=== PATIENT | male | born 1965 | race American Indian/Alaskan Native ===

== ENCOUNTER 2018-09-09 16:29 | Inpatient (IN) | payer OTHER ==
--- NOTE | 2018-09-09 16:44 | Emergency Department Report ---
Blank Doc - Documentation Documentation: has increasing SOB that began two days ago difficulty lying flat states that his PCP took him off of lasix a year ago, was previously on it for two years but not sure what he was on it for PCP: amadeo haro has not seen a custodial officer in a couple years no CP PMHx DM, gout, HLD, HTN no allergies to meds social cigar occ drinker no drug use
[2018-09-09 17:03] LABS: Basophils % (Auto) 0.4 % (0.0-1.8); Eosinophils # (Auto) 0.1 K/mm3 (0.0-0.4); Eosinophils % (Auto) 0.8 % (0.0-4.3); Hemoglobin 12.8 gm/dl (11.8-15.2); Lymphocytes # (Auto) 1.9 K/mm3 (1.2-5.4); Lymphocytes % (Auto) 21.6 % (13.4-35.0); Mean Corpuscular HGB Conc 34 % (32-34); Mean Corpuscular Volume 87 fl (84-94); Monocytes # (Auto) 0.5 K/mm3 (0.0-0.8); Monocytes % (Auto) 5.8 % (0.0-7.3); Platelet Count 242 K/mm3 (140-440); Red Blood Count 4.36 M/mm3 (3.65-5.03); Red Cell Distribution Width 15.8 % (13.2-15.2)
--- NOTE | 2018-09-09 17:08 | XRay Report ---
PROCEDURE: XR CHEST ROUTINE 2V TECHNIQUE: PA and lateral chest radiographs were obtained. HISTORY: SOB COMPARISONS: None. FINDINGS: Heart: Mild cardiomegaly. Mediastinum/Vessels: Trachea midline.. Lungs/Pleural space: [id number] right effusion. Small left effusion. Bibasilar airspace disea se. Bony thorax: No acute osseous abnormality. IMPRESSION: Cardiomegaly. Bilateral effusions airspace disease right greater than left. Findings com patible with congestive heart failure.. This document is electronically signed by Praneeth Neal MD., Sep 09 2018 05:05:55 PM ET
[2018-09-09 17:20] LABS: BUN/Creatinine Ratio 11; Blood Urea Nitrogen 13 mg/dL (9-20); Calcium 9.8 mg/dL (8.4-10.2); Hemolysis Index 4
--- NOTE | 2018-09-09 17:34 | Emergency Department Report ---
ED Shortness of Breath HPI - General Chief Complaint: Dyspnea/Respdistress Stated Complaint: CHEST DISCOMFORT Time Seen by Provider: 09/09/18 16:41 Source: patient, RN notes reviewed, old records reviewed Mode of arrival: Ambulatory Limitations: No Limitations - History of Present Illness Initial Comments: This is a 53-year-old gentleman. The patient is not known to this provider previously. His primary care doctor is Dr. Calles. His past medical history includes hypertension, gout, diabetes. The patient presents to the emergency room today with a complaint of painless shortness of breath. He reports new onset 3 pillow orthopnea, over the past 2-3 days. There is an unintentional 10 pound weight gain, and lower extremity swelling. He denies physical pain at this time. Shortness of breath worsens with laying flat, physical exertion, decreases with rest, and sitting up. Does not have a formal diagnosis of congestive heart failure that he is aware of. MD Complaint: shortness of breath, cough -: Gradual, days(s) Consistency: intermittent Improves With: rest Worsens With: lying flat, exertion Known History Of: other - Related Data Home Oxygen Therapy: No Home Medications Medication Instructions Recorded Confirmed Last Taken Carvedilol [Coreg] 12.5 mg PO BID 06/08/17 06/08/17 06/03/17 Fenofibrate 160 mg PO DAILY 06/08/17 06/08/17 06/03/17 Furosemide [Lasix] 20 mg PO DAILY 06/08/17 06/08/17 06/03/17 Metformin HCl [Glucophage] 1,000 mg PO BID 06/08/17 06/08/17 06/03/17 Potassium Chloride [Klor-Con M20] 20 meq PO DAILY 06/08/17 06/08/17 06/03/17 glipiZIDE [Glipizide] 10 mg PO DAILY 06/08/17 06/08/17 06/03/17 Previous Rx's Medication Instructions Recorded Last Taken Type Amoxicillin/K Clav Tab [Augmentin 1 tab PO Q12HR #14 tab 06/10/17 Unknown Rx 875 mg] Insulin Glargine,Hum.rec.anlog 10 units SQ QHS #5 pen 06/10/17 Unknown Rx [Lantus Solostar] Insulin Glargine,Hum.rec.anlog 10 unit SQ QHS #1 vial 06/10/17 Unknown Rx [Lantus] Lisinopril [Zestril TAB] 40 mg PO QDAY #30 tablet 06/10/17 Unknown Rx amLODIPine [Norvasc] 10 mg PO QDAY #30 tablet 06/10/17 Unknown Rx DOXYCYCLINE Hyclate [Vibramycin 100 mg PO Q12HR #14 capsule 06/11/17 Unknown Rx CAP] Allergies Allergy/AdvReac Type Severity Reaction Status Date / Time No Known Allergies Allergy Unverified 06/08/17 06:55 ED Review of Systems ROS: Stated complaint: CHEST DISCOMFORT Other details as noted in HPI Constitutional: malaise. denies: fever Eyes: denies: vision change ENT: denies: epistaxis Respiratory: cough, shortness of breath Cardiovascular: dyspnea on exertion, orthopnea, edema. denies: chest pain Gastrointestinal: denies: abdominal pain, nausea, vomiting Genitourinary: denies: dysuria Musculoskeletal: denies: arthralgia Skin: denies: lesions Neurological: weakness Psychiatric: denies: anxiety ED Past Medical Hx - Past Medical History Previous Medical History?: Yes Hx Hypertension: Yes Hx Congestive Heart Failure: No Hx Diabetes: Yes Hx Asthma: No Hx COPD: No Additional medical history: Gout, hyperlipidemia - Surgical History Past Surgical History?: Yes Additional Surgical History: Esophageal surgery as a young age, cyst removed fr om back - Social History Smoking Status: Current Some Day Smoker Substance Use Type: Alcohol, Prescribed - Medications Home Medications: Home Medications Medication Instructions Recorded Confirmed Last Taken Type Carvedilol [Coreg] 12.5 mg PO BID 06/08/17 06/08/17 06/03/17 History Fenofibrate 160 mg PO DAILY 06/08/17 06/08/17 06/03/17 History Furosemide [Lasix] 20 mg PO DAILY 06/08/17 06/08/17 06/03/17 History Metformin HCl [Glucophage] 1,000 mg PO BID 06/08/17 06/08/17 06/03/17 History Potassium Chloride [Klor-Con M20] 20 meq PO DAILY 06/08/17 06/08/17 06/03/17 History glipiZIDE [Glipizide] 10 mg PO DAILY 06/08/17 06/08/17 06/03/17 History Amoxicillin/K Clav Tab [Augmentin 1 tab PO Q12HR #14 tab 06/10/17 Unknown Rx 875 mg] Insulin Glargine,Hum.rec.anlog 10 units SQ QHS #5 pen 06/10/17 Unknown Rx [Lantus Solostar] Insulin Glargine,Hum.rec.anlog 10 unit SQ QHS #1 vial 06/10/17 Unknown Rx [Lantus] Lisinopril [Zestril TAB] 40 mg PO QDAY #30 tablet 06/10/17 Unknown Rx amLODIPine [Norvasc] 10 mg PO QDAY #30 tablet 06/10/17 Unknown Rx DOXYCYCLINE Hyclate [Vibramycin 100 mg PO Q12HR #14 capsule 06/11/17 Unknown Rx CAP] ED Physical Exam - General Limitations: No Limitations General appearance: alert, in no apparent distress, obese - Head Head exam: Present: atraumatic, normocephalic - Eye Eye exam: Present: normal appearance, EOMI - ENT ENT exam: Present: normal exam, normal orophraynx, mucous membranes moist, normal external ear exam - Neck Neck exam: Present: normal inspection, full ROM, other (5 cm of jugular venous distention noted bilaterally.). Absent: tenderness, meningismus - Respiratory Respiratory exam: Present: rales. Absent: wheezes, chest wall tenderness, accessory muscle use, decreased breath sounds - Cardiovascular Cardiovascular Exam: Present: regular rate, normal rhythm, normal heart sounds. Absent: bradycardia, tachycardia, irregular rhythm, systolic murmur, diastolic murmur, rubs, gallop - GI/Abdominal GI/Abdominal exam: Present: soft. Absent: distended, tenderness, guarding, rebound, rigid, pulsatile mass - Rectal Rectal exam: Present: deferred - Extremities Exam Extremities exam: Present: normal inspection, full ROM, pedal edema, other (2+ pulses noted in the bilateral upper, lower extremities. Compartments soft. No long bony tenderness. The pelvis is stable.). Absent: calf tenderness - Back Exam Back exam: Present: normal inspection, full ROM. Absent: tenderness, CVA tenderness (R), CVA tenderness (L), muscle spasm, paraspinal tenderness, vertebral tenderness - Neurological Exam Neurological exam: Present: alert, oriented X3, other (Extraocular movements intact. Tongue midline. No facial droop. Facial sensation intact to light touch in the V1, V2, V3 distribution bilaterally. 5 and 5 strength in 4 extremities.. Sensation is intact to light touch in 4 extremities.). Absent: motor sensory deficit - Psychiatric Psychiatric exam: Present: normal affect, normal mood - Skin Skin exam: Present: warm, dry, intact, normal color. Absent: rash ED Course Vital Signs 09/09/18 09/09/18 09/09/18 16:37 17:21 17:32 Temperature 97.6 F Pulse Rate 96 H 95 H Respiratory 18 26 H Rate Blood Pressure 111/78 123/85 O2 Sat by Pulse 99 95 100 Oximetry 09/09/18 09/09/18 09/09/18 17:46 18:00 18:16 Temperature Pulse Rate 96 H 96 H 98 H Respiratory 20 22 17 Rate Blood Pressure 128/89 127/93 127/93 O2 Sat by Pulse 98 100 100 Oximetry 09/09/18 09/09/18 18:30 18:46 Temperature Pulse Rate 97 H 99 H Respiratory 29 H 28 H Rate Blood Pressure 127/93 127/93 O2 Sat by Pulse 100 100 Oximetry ED Medical Decision Making - Lab Data Result diagrams: 09/09/18 16:49 09/09/18 16:49 Vital Signs 09/09/18 16:37 Temperature 97.6 F Pulse Rate 96 H Respiratory 18 Rate Blood Pressure 111/78 O2 Sat by Pulse 99 Oximetry Lab Results 09/09/18 09/09/18 Range/Units 16:49 16:49 WBC 8.8 (4.5-11.0) K/mm3 RBC 4.36 (3.65-5.03) M/mm3 Hgb 12.8 (11.8-15.2) gm/dl Hct 38.0 (35.5-45.6) % MCV 87 (84-94) fl MCH 29 (28-32) pg MCHC 34 (32-34) % RDW 15.8 H (13.2-15.2) % Plt Count 242 (140-440) K/mm3 Lymph % (Auto) 21.6 (13.4-35.0) % [place] % (Auto) 5.8 (0.0-7.3) % Eos % (Auto) 0.8 (0.0-4.3) % Baso % (Auto) 0.4 (0.0-1.8) % Lymph # 1.9 (1.2-5.4) K/mm3 [place] # 0.5 (0.0-0.8) K/mm3 Eos # 0.1 (0.0-0.4) K/mm3 Baso # 0.0 (0.0-0.1) K/mm3 Seg Neutrophils % 71.4 H (40.0-70.0) % Seg Neutrophils # 6.3 (1.8-7.7) K/mm3 Sodium 138 (137-145) mmol/L Potassium 4.6 (3.6-5.0) mmol/L Chloride 102.1 (98-107) mmol/L Carbon Dioxide 23 (22-30) mmol/L Anion Gap 18 mmol/L BUN 13 (9-20) mg/dL Creatinine 1.2 (0.8-1.5) mg/dL Estimated GFR > 60 ml/min BUN/Creatinine Ratio 11 % Glucose 231 H (75-100) mg/dL Calcium 9.8 (8.4-10.2) mg/dL Troponin T < 0.010 (0.00-0.029) ng/mL NT-Pro-B Natriuret Pep 1093 H (0-900) pg/mL - EKG Data -: EKG Interpreted by Ut EKG shows normal: sinus rhythm Rate: normal - EKG Data When compared to previous EKG there are: previous EKG unavailable 09/09/18 17:34 This is a normal sinus rhythm, 94 bpm, normal axis, QTC prolonged, atrial enlargement, poor R wave progression, abnormal EKG, no complaint of chest pain, not consistent with ST elevation myocardial infarction. - Radiology Data Radiology results: report reviewed, image reviewed Print Report Referring Physician: ASAEL BURGOS Patient Name: STEVEN VALDEZ Date of : 1965 Sex: Male Report Date: 2018-09-09 Report Status: Finalized Findings [facility] [address] [place] [address] XR ay Report Signed Patient: STEVEN VALDEZ MR#: [id number] : 1965 Acct:[id number] Age/Sex: 53 / M ADM Date: 09/09/18 Loc: ED Attending Dr: Ordering Physician: JUAN RAMON RIOS Date of Service: 09/09/18 Procedure(s): XR chest routine 2V Accession Number(s): [id number] cc: JUAN RAMON RIOS Fluoro Time In Minutes: PROCEDURE: XR CHEST ROUTINE 2V TECHNIQUE: PA and lateral chest radiographs were obtained. HISTORY: SOB COMPARISONS: None. FINDINGS: Heart: Mild cardiomegaly. Mediastinum/Vessels: Trachea midline.. Lungs/Pleural space: [id number] right effusion. Small left effusion. Bibasilar airspace disease. Bony thorax: No acute osseous abnormality. IMPRESSION: Cardiomegaly. B ilateral effusions airspace disease right greater than left. Findings compatible with congestive heart failure.. This document is electronically signed by Praneeth Apodaca MD., Sep 09 2018 05:05:55 PM ET Transcribed By: MAGDA Dictated By: PRANEETH APODACA MD Electronically Authenticated By: PRANEETH APODACA MD Signed Date/Time: 09/09/18 2168 - Medical Decision Making Differential diagnosis, including but not limited to: Congestive heart failure, orthopnea, fluid overload Assessment and plan: 53-year-old gentleman, not tachycardic, not hypoxic, reports no DVT or pulmonary embolus risk factors, with evidence of acute congestive heart failure, manifest by orthopnea, jugular venous distention, crackles, chest x-ray findings, and history. Recommended admission for diuresis. Patient and family are amenable to this plan of care. Discussed diet and life style modifications for future reference with patient and family, who verbalized understanding. Hospital physician, Dr. Roshni Rosario to admit Critical care attestation.: If time is entered above; I have spent that time in minutes in the direct care of this critically ill patient, excluding procedure time. ED Disposition Clinical Impression: Acute CHF Qualifiers: Heart failure type: unspecified Qualified Code(s): I50.9 - Heart failure, unspecified Disposition: -09 OP ADMIT IP TO THIS HOSP Is pt being admited?: Yes Does the pt Need Aspirin: Yes Condition: Good
[2018-09-09 18:09] LABS: INR 1.02 (0.87-1.13)
[2018-09-09] MEDS ORDERED: LASIX IV ONE (18:10)
[2018-09-09] MEDS ORDERED: BABY ASPIRIN PO ONE (18:10)
[2018-09-09 18:12] LABS: Partial Thromboplastin Time 28.1 Sec. (24.2-36.6)
[2018-09-09] MEDS ORDERED: COLCHICINE PO PRN (21:24)
[2018-09-09] MEDS ORDERED: MORPHINE IV PRN (21:26)
[2018-09-09] MEDS ORDERED: TYLENOL PO PRN (21:26)
[2018-09-09] MEDS ORDERED: SODIUM CHLORIDE FLUSH SYRINGE 10 ML IV PRN (21:26)
[2018-09-09] MEDS ORDERED: NON-FORMULARY (Fenofibrate [Fenofibrate] 160 MG) PO SCH (21:30)
[2018-09-09] MEDS: PEPCID PO SCH (22:19)
[2018-09-09] MEDS: PERCOCET 5/325 PO PRN (22:19)
[2018-09-09] MEDS: LANTUS SUB-Q SCH (22:19)
[2018-09-09] MEDS: COREG PO SCH (22:19)
[2018-09-09] MEDS ORDERED: D50W (25GM) Syringe IV PRN (22:20)
[2018-09-09] MEDS: TRICOR PO SCH (22:20)
[2018-09-09] MEDS: SODIUM CHLORIDE FLUSH SYRINGE 10 ML IV SCH (22:20)
[2018-09-10] MEDS: ZOFRAN IV PRN (05:09)
--- NOTE | 2018-09-10 07:18 | History and Physical Report ---
History of Present Illness Date of examination: 09/09/18 Date of admission: 09/09/18 18:11 Chief complaint: New onset SOB History of present illness: 53-year-old gentleman presents to the emergency room today with a complaint of shortness of breath. He reports new onset 3 pillow orthopnea, over the past 2-3 days. There is an unintentional 10 pound weight gain, and lower extremity swelling. He denies physical pain at this time. Shortness of breath worsens with laying flat, physical exertion, decreases with rest, and sitting up. Does not have a formal diagnosis of congestive heart failure that he is aware of. Has class IV NYHA symptoms Past Medical History Previous Medical History?: Yes Hypertension: Yes Congestive Heart Failure: No Diabetes: Yes Additional medical history: Gout, hyperlipidemia -Surgical History Past Surgical History?: Yes Additional Surgical History: Esophageal surgery as a young age, cyst removed from back Social History Smoking Status: Current Some Day Smoker Substance Use Type: Alcohol, Prescribed Medications Home Medications: Home Medications Medication Instructions Recorded Confirmed Last Taken Type Carvedilol [Coreg] 12.5 mg PO BID 06/08/17 06/08/17 06/03/17 History Fenofibrate 160 mg PO DAILY 06/08/17 06/08/17 06/03/17 History Furosemide [Lasix] 20 mg PO DAILY 06/08/17 06/08/17 06/03/17 History Metformin HCl [Glucophage] 1,000 mg PO BID 06/08/17 06/08/17 06/03/17 History Potassium Chloride [Klor-Con M20] 20 meq PO DAILY 06/08/17 06/08/17 06/03/17 History glipiZIDE [Glipizide] 10 mg PO DAILY 06/08/17 06/08/17 06/03/17 History Amoxicillin/K Clav Tab [Augmentin 1 tab PO Q12HR #14 tab 06/10/17 Unknown Rx 875 mg] Insulin Glargine,Hum.rec.anlog 10 units SQ QHS #5 pen 06/10/17 Unknown Rx [Lantus Solostar] Insulin Glargine,Hum.rec.anlog 10 unit SQ QHS #1 vial 06/10/17 Unknown Rx [Lantus] Lisinopril [Zestril TAB] 40 mg PO QDAY #30 tablet 06/10/17 Unknown Rx amLODIPine [Norvasc] 10 mg PO QDAY #30 tablet 06/10/17 Unknown Rx DOXYCYCLINE Hyclate [Vibramycin 100 mg PO Q12HR #14 capsule 06/11/17 Unknown Rx CAP] Review of Systems ROS: Stated complaint: CHEST DISCOMFORT Other details as noted in HPI Constitutional: malaise. denies: fever Eyes: denies: vision change ENT: denies: epistaxis Respiratory: cough, shortness of breath Cardiovascular: dyspnea on exertion, orthopnea, edema. denies: chest pain Gastrointestinal: denies: abdominal pain, nausea, vomiting Genitourinary: denies: dysuria Musculoskeletal: denies: arthralgia Skin: denies: lesions Neurological: weakness Psychiatric: denies: anxiety Medications and Allergies Allergies Allergy/AdvReac Type Severity Reaction Status Date / Time No Known Allergies Allergy Unverified 06/08/17 06:55 Home Medications Medication Instructions Recorded Confirmed Last Taken Type Carvedilol [Coreg] 12.5 mg PO BID 06/08/17 09/09/18 2 Days Ago History ~09/07/18 Fenofibrate 160 mg PO DAILY 06/08/17 09/09/18 1 Day Ago History ~09/08/18 Insulin Glargine,Hum.rec.anlog 10 unit SQ QHS #1 vial 06/10/17 09/09/18 1 Day Ago Rx [Lantus] ~09/08/18 Colchicine 0.6 mg PO TID PRN 09/09/18 09/09/18 3 Weeks Ago History ~08/19/18 Active Meds: Active Medications Acetaminophen (Tylenol) 650 mg PO Q4H PRN PRN Reason: Pain MILD(1-3)/Fever >100.5/ALANIZ Carvedilol (Coreg) 12.5 mg PO BID [facility] Last Admin: 09/09/18 22:19 Dose: 12.5 mg Documented by: Colchicine (Colchicine) 0.6 mg PO TID PRN PRN Reason: Pain , Severe (7-10) Dextrose (D50w (25gm) Syringe) 50 ml IV PRN PRN PRN Reason: Hypoglycemia Famotidine (Pepcid) 20 mg PO BID [facility] Last Admin: 09/09/18 22:19 Dose: 20 mg Documented by: Fenofibrate (Tricor) 145 mg PO DAILY [facility] Last Admin: 09/09/18 22:20 Dose: 145 mg Documented by: Guaifenesin (Guaifenesin Dm Syrup) 10 ml PO Q4H PRN PRN Reason: Cough Insulin Glargine (Lantus) 10 units SUB-Q QHS [facility] Last Admin: 09/09/18 22:19 Dose: 10 units Documented by: Insulin Human Lispro (Humalog) 0 unit SUB-Q ACHS [facility]; Protocol Morphine Sulfate (Morphine) 2 mg IV Q4H PRN PRN Reason: Pain, Moderate (4-6) Ondansetron HCl (Zofran) 4 mg IV Q8H PRN PRN Reason: Nausea And Vomiting Last Admin: 09/10/18 05:09 Dose: 4 mg Documented by: Oxycodone/Acetaminophen (Percocet 5/325) 1 tab PO Q6H PRN PRN Reason: Pain, Moderate (4-6) Last Admin: 09/09/18 22:19 Dose: 1 tab Documented by: Sodium Chloride (Sodium Chloride Flush Syringe 10 Ml) 10 ml IV BID [facility] Last Admin: 09/09/18 22:20 Dose: 10 ml Documented by: Sodium Chloride (Sodium Chloride Flush Syringe 10 Ml) 10 ml IV PRN PRN PRN Reason: LINE FLUSH Exam - Constitutional Vitals: Temp Pulse Resp BP Pulse Ox 97.4 F L 86 20 115/82 94 09/10/18 05:00 09/10/18 05:00 09/10/18 05:00 09/10/18 05:00 09/10/18 05:00 General appearance: Present: no acute distress, well-nourished - EENT Eyes: Present: PERRL ENT: hearing intact, clear oral mucosa - Neck Neck: Present: supple, normal ROM - Respiratory Respiratory effort: normal Respiratory: bilateral: rales - Cardiovascular Heart rate: 88 Rhythm: regular Heart Sounds: Present: S1 & S2. Absent: rub, click - Extremities Extremities: no ischemia, pulses intact, pulses symmetrical, No edema Extremity abnormal: edema (2 plus) Peripheral Pulses: within normal limits - Abdominal General gastrointestinal: Present: soft, non-tender, non-distended, normal bowel sounds Male genitourinary: Present: normal - Rectal Rectal Exam: deferred - Integumentary Integumentary: Present: clear, warm, dry - Musculoskeletal Musculoskeletal: gait normal, strength equal bilaterally - Psychiatric Psychiatric: appropriate mood/affect, intact judgment & insight - Neurologic Neurologic: CNII-XII intact, moves all extremities - Allied Health Allied health notes reviewed: nursing, case management Results - Labs CBC & Chem 7: 09/09/18 16:49 09/09/18 16:49 Labs: Laboratory Last Values WBC 8.8 K/mm3 (4.5-11.0) 09/09/18 16:49 RBC 4.36 M/mm3 (3.65-5.03) 09/09/18 16:49 Hgb 12.8 gm/dl (11.8-15.2) 09/09/18 16:49 Hct 38.0 % (35.5-45.6) 09/09/18 16:49 MCV 87 fl (84-94) 09/09/18 16:49 MCH 29 pg (28-32) 09/09/18 16:49 MCHC 34 % (32-34) 09/09/18 16:49 RDW 15.8 % (13.2-15.2) H 09/09/18 16:49 Plt Count 242 K/mm3 (140-440) 09/09/18 16:49 Lymph % (Auto) 21.6 % (13.4-35.0) 09/09/18 16:49 [place] % (Auto) 5.8 % (0.0-7.3) 09/09/18 16:49 Eos % (Auto) 0.8 % (0.0-4.3) 09/09/18 16:49 Baso % (Auto) 0.4 % (0.0-1.8) 09/09/18 16:49 Lymph # 1.9 K/mm3 (1.2-5.4) 09/09/18 16:49 [place] # 0.5 K/mm3 (0.0-0.8) 09/09/18 16:49 Eos # 0.1 K/mm3 (0.0-0.4) 09/09/18 16:49 Baso # 0.0 K/mm3 (0.0-0.1) 09/09/18 16:49 Seg Neutrophils % 71.4 % (40.0-70.0) H 09/09/18 16:49 Seg Neutrophils # 6.3 K/mm3 (1.8-7.7) 09/09/18 16:49 PT 14.0 Sec. (12.2-14.9) 09/09/18 17:42 INR 1.02 (0.87-1.13) 09/09/18 17:42 APTT 28.1 Sec. (24.2-36.6) 09/09/18 17:42 Sodium 138 mmol/L (137-145) 09/09/18 16:49 Potassium 4.6 mmol/L (3.6-5.0) 09/09/18 16:49 Chloride 102.1 mmol/L (98-107) 09/09/18 16:49 Carbon Dioxide 23 mmol/L (22-30) 09/09/18 16:49 18 mmol/L 09/09/18 16:49 BUN 13 mg/dL (9-20) 09/09/18 16:49 1.2 mg/dL (0.8-1.5) 09/09/18 16:49 Estimated GFR > 60 ml/min 09/09/18 16:49 11 % 09/09/18 16:49 Glucose 231 mg/dL (75-100) H 09/09/18 16:49 7.7 % (4-6) H 09/09/18 21:41 Calcium 9.8 mg/dL (8.4-10.2) 09/09/18 16:49 Magnesium 1.70 mg/dL (1.7-2.3) 09/09/18 17:42 269 units/L (55-170) H 09/09/18 17:42 < 0.010 ng/mL (0.00-0.029) 09/09/18 16:49 NT-Pro-B Natriuret Pep 1093 pg/mL (0-900) H 09/09/18 16:49 - Imaging and Cardiology EKG: report reviewed Chest x-ray: report reviewed Imaging and Cardiology: CXR IMPRESSION: Cardiomegaly. Bilateral effusions airspace disease right greater than left. Findings compatible with congestive heart failure.. EKG EKG Data EKG Interpreted by Me 09/09/18 This is a normal sinus rhythm, 94 bpm, normal axis, QTC prolonged, atrial enlargement, poor R wave progression, abnormal EKG, no complaint of chest pain, not consistent with ST elevation myocardial infarction. No previous EKG available Assessment and Plan Advance Directives: Yes (FC) VTE prophylaxis?: Chemical Plan of care discussed with patient/family: Yes - Patient Problems (1) Acute exacerbation of congestive heart failure Current Visit: Yes Status: Acute Plan to address problem: ECHO ordered IV Lasix Daily I/o Daily weights (2) IDDM (insulin dependent diabetes mellitus) Current Visit: Yes Status: Chronic Plan to address problem: Cont home insulin and coverage Check A1c (3) HTN (hypertension) Current Visit: Yes Status: Chronic Qualifiers: Hypertension type: essential hypertension Qualified Code(s): I10 - [place] l (primary) hypertension Plan to address problem: Cont antihypertensives (4) DVT prophylaxis Current Visit: Yes Status: Acute Plan to address problem: On Lovenox and GI prophylaxis
--- NOTE | 2018-09-10 07:51 | Progress Note ---
Assessment and Plan Assessment and plan: Patient is a 53 yo man with a history of hypertension, gout, dyslipidemia, IDDM type 2 and tobacco dependency who presented to [facility] with sob. * 2v CXR IMPRESSION: Cardiomegaly. Bilateral effusions airspace disease right greater than left. Findings compatible with congestive heart failure.. Acute diastolic (suspected) heart failure: treat with iv lasix, ECHO pending, monitor i/o and daily weight, added ASA, on coreg, hold off on aureliano/arb because bp borderline low, so Consulted Cardiology, ordered lipid panel and TSH. 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 Follow-up on current diagnosis of CHF. No overnight events reported to me. Patient denies any chest pain, shortness breath, nausea/vomiting or severe headaches. Imaging, nursing note, chart, labs and old chart reviewed. Discussed with patient. Hospitalist Physical - Physical exam Narrative exam: Gen: WDWN, NAD, Awake, Alert, Orientated x 3 HEENT: NCAT, EOMI, PERRL, OP Clear Neck: supple, no adenopathy, no thyromegaly, no JVD CVS/Heart: RRR, normal S1S2, pulses present bilaterally Chest/Lungs: CTA B, Symmetrical chest expansion, good air entry bilaterally GI/Abdomen: soft, NTND, good bowel sounds, no guarding or rebound /Bladder: no suprapubic tenderness, no CVA or paraspinal tenderness Extermity/Skin: trace pretibial pitting edema bilateral legs, no obvious rash MSK: FROM x 4 Neuro: CN 2-12 grossly intact, no new focal deficits Psych: calm - Constitutional Vitals: Temp Pulse Resp BP Pulse Ox 97.4 F L 86 20 115/82 94 09/10/18 05:00 09/10/18 05:00 09/10/18 05:00 09/10/18 05:00 09/10/18 05:00 General appearance: Present: no acute distress, well-nourished Results - Labs CBC & Chem 7: 09/10/18 07:26 09/10/18 07:26 Labs: Laboratory Last Values WBC 8.8 K/mm3 (4.5-11.0) 09/09/18 16:49 RBC 4.36 M/mm3 (3.65-5.03) 09/09/18 16:49 Hgb 12.8 gm/dl (11.8-15.2) 09/09/18 16:49 Hct 38.0 % (35.5-45.6) 09/09/18 16:49 MCV 87 fl (84-94) 09/09/18 16:49 MCH 29 pg (28-32) 09/09/18 16:49 MCHC 34 % (32-34) 09/09/18 16:49 RDW 15.8 % (13.2-15.2) H 09/09/18 16:49 Plt Count 242 K/mm3 (140-440) 09/09/18 16:49 Lymph % (Auto) 21.6 % (13.4-35.0) 09/09/18 16:49 [place] % (Auto) 5.8 % (0.0-7.3) 09/09/18 16:49 Eos % (Auto) 0.8 % (0.0-4.3) 09/09/18 16:49 Baso % (Auto) 0.4 % (0.0-1.8) 09/09/18 16:49 Lymph # 1.9 K/mm3 (1.2-5.4) 09/09/18 16:49 [place] # 0.5 K/mm3 (0.0-0.8) 09/09/18 16:49 Eos # 0.1 K/mm3 (0.0-0.4) 09/09/18 16:49 Baso # 0.0 K/mm3 (0.0-0.1) 09/09/18 16:49 Seg Neutrophils % 71.4 % (40.0-70.0) H 09/09/18 16:49 Seg Neutrophils # 6.3 K/mm3 (1.8-7.7) 09/09/18 16:49 PT 14.0 Sec. (12.2-14.9) 09/09/18 17:42 INR 1.02 (0.87-1.13) 09/09/18 17:42 APTT 28.1 Sec. (24.2-36.6) 09/09/18 17:42 Sodium 138 mmol/L (137-145) 09/09/18 16:49 Potassium 4.6 mmol/L (3.6-5.0) 09/09/18 16:49 Chloride 102.1 mmol/L (98-107) 09/09/18 16:49 Carbon Dioxide 23 mmol/L (22-30) 09/09/18 16:49 18 mmol/L 09/09/18 16:49 BUN 13 mg/dL (9-20) 09/09/18 16:49 1.2 mg/dL (0.8-1.5) 09/09/18 16:49 Estimated GFR > 60 ml/min 09/09/18 16:49 11 % 09/09/18 16:49 Glucose 231 mg/dL (75-100) H 09/09/18 16:49 7.7 % (4-6) H 09/09/18 21:41 Calcium 9.8 mg/dL (8.4-10.2) 09/09/18 16:49 Magnesium 1.70 mg/dL (1.7-2.3) 09/09/18 17:42 269 units/L (55-170) H 09/09/18 17:42 < 0.010 ng/mL (0.00-0.029) 09/09/18 16:49 NT-Pro-B Natriuret Pep 1093 pg/mL (0-900) H 09/09/18 16:49 Active Medications - Current Medications Current Medications: Generic Name Dose Route Start Last Admin Trade Name Freq PRN Reason Stop Dose Admin Acetaminophen 650 mg 09/09/18 21:26 Tylenol PO Q4H PRN Pain MILD(1-3)/Fever >100.5/ALANIZ Aspirin 325 mg 09/10/18 10:00 Aspirin PO QDAY [facility] Carvedilol 12.5 mg 09/09/18 22:00 09/09/18 22:19 Coreg PO 12.5 mg BID REECE Administration Colchicine 0.6 mg 09/09/18 21:24 Colchicine PO TID PRN Pain , Severe (7-10) Dextrose 50 ml 09/09/18 22:20 D50w (25gm) Syringe IV PRN PRN Hypoglycemia Enoxaparin Sodium 40 mg 09/10/18 22:00 Lovenox SUB-Q QDAY@2200 [facility] Famotidine 20 mg 09/09/18 22:00 09/09/18 22:19 Pepcid PO 20 mg BID [facility] Administration Fenofibrate 145 mg 09/09/18 21:30 09/09/18 22:20 Tricor PO 145 mg DAILY [facility] Administration Furosemide 40 mg 09/10/18 18:00 Lasix IV 0600,1800 [facility] Guaifenesin 10 ml 09/09/18 22:20 Guaifenesin Dm Syrup PO Q4H PRN Cough Insulin Glargine 10 units 09/09/18 22:00 09/09/18 22:19 Lantus SUB-Q 10 units QHS [facility] Administration Insulin Human Lispro 0 unit 09/10/18 07:30 Humalog SUB-Q ACHS [facility] Protocol Morphine Sulfate 2 mg 09/09/18 21:26 Morphine IV Q4H PRN Pain, Moderate (4-6) Ondansetron HCl 4 mg 09/09/18 21:26 09/10/18 05:09 Zofran IV 4 mg Q8H PRN Administration Nausea And Vomiting Oxycodone/Acetaminophen 1 tab 09/09/18 21:26 09/09/18 22:19 Percocet 5/325 PO 1 tab Q6H PRN Administration Pain, Moderate (4-6) Sodium Chloride 10 ml 09/09/18 22:00 09/09/18 22:20 Sodium Chloride Flush Syringe 10 Ml IV 10 ml BID REECE Administration Sodium Chloride 10 ml 09/09/18 21:26 Sodium Chloride Flush Syringe 10 Ml IV PRN PRN LINE FLUSH
[2018-09-10 08:12] LABS: Basophils % (Auto) 0.3 % (0.0-1.8); Eosinophils # (Auto) 0.1 K/mm3 (0.0-0.4); Eosinophils % (Auto) 0.6 % (0.0-4.3); Hematocrit 37.3 % (35.5-45.6); Hemoglobin 12.6 gm/dl (11.8-15.2); Lymphocytes # (Auto) 1.4 K/mm3 (1.2-5.4); Lymphocytes % (Auto) 15.3 % (13.4-35.0); Mean Corpuscular HGB Conc 34 % (32-34); Mean Corpuscular Volume 88 fl (84-94); Monocytes # (Auto) 0.4 K/mm3 (0.0-0.8); Monocytes % (Auto) 4.9 % (0.0-7.3); Platelet Count 242 K/mm3 (140-440); Red Blood Count 4.26 M/mm3 (3.65-5.03); Red Cell Distribution Width 16.3 % (13.2-15.2)
[2018-09-10 08:39] LABS: Alanine Aminotransferase 55 units/L (7-56); Albumin 3.9 g/dL (3.9-5); BUN/Creatinine Ratio 13; Blood Urea Nitrogen 16 mg/dL (9-20); Calcium 9.2 mg/dL (8.4-10.2); Hemolysis Index 3
[2018-09-10] MEDS: HumaLOG SUB-Q SCH ×4 (08:49→22:24)
[2018-09-10] MEDS: PEPCID PO SCH ×2 (09:35→22:01)
[2018-09-10] MEDS: ASPIRIN PO SCH (09:35)
[2018-09-10] MEDS: SODIUM CHLORIDE FLUSH SYRINGE 10 ML IV SCH ×2 (09:36→22:04)
[2018-09-10] MEDS: COREG PO SCH ×2 (09:36→22:02)
[2018-09-10] MEDS: TRICOR PO SCH (09:36)
[2018-09-10] MEDS: LASIX IV SCH (17:36)
[2018-09-10] MEDS ORDERED: LOVENOX SUB-Q SCH (22:00)
[2018-09-10] MEDS: PERCOCET 5/325 PO PRN (22:02)
[2018-09-10] MEDS: LANTUS SUB-Q SCH (22:04)
[2018-09-11] MEDS: LASIX IV SCH (06:19)
[2018-09-11 07:43] LABS: Hematocrit 38.1 % (35.5-45.6); Hemoglobin 12.7 gm/dl (11.8-15.2); Mean Corpuscular HGB Conc 33 % (32-34); Mean Corpuscular Volume 88 fl (84-94); Platelet Count 243 K/mm3 (140-440); Red Blood Count 4.33 M/mm3 (3.65-5.03); Red Cell Distribution Width 16.6 % (13.2-15.2)
[2018-09-11 08:04] LABS: BUN/Creatinine Ratio 15; Blood Urea Nitrogen 20 mg/dL (9-20); Calcium 8.9 mg/dL (8.4-10.2); Chol/HDL Ratio 7.34 %; HDL Cholesterol 23 mg/dL (40-59); Hemolysis Index 57; LDL Cholesterol,Direct 109 mg/dL (50-130)
[2018-09-11] MEDS: ZOFRAN IV PRN (08:21)
[2018-09-11] MEDS: HumaLOG SUB-Q SCH ×4 (09:02→21:24)
[2018-09-11] MEDS: TRICOR PO SCH (09:30)
[2018-09-11] MEDS: ASPIRIN PO SCH (09:30)
[2018-09-11] MEDS: PEPCID PO SCH ×2 (09:30→21:23)
[2018-09-11] MEDS: COREG PO SCH ×2 (09:30→21:26)
[2018-09-11] MEDS: SODIUM CHLORIDE FLUSH SYRINGE 10 ML IV SCH ×2 (09:30→21:24)
[2018-09-11] MEDS: TESSALON PERLES PO SCH ×2 (11:45→21:23)
--- NOTE | 2018-09-11 11:48 | Consultation ---
History of Present Illness Consult date: 09/11/18 Consult reason: congestive heart failure, shortness of breath History of present illness: 53 year old -Bhutanese male presented with shortness of breath orthopnea and dyspnea on mild exertion. Past History Past Medical History: diabetes, hypertension, hyperlipidemia, other (gout) Past Surgical History: No surgical history Social history: smoking, alcohol abuse, other (social drug abuse) Family history: no significant family history Medications and Allergies Allergies Allergy/AdvReac Type Severity Reaction Status Date / Time No Known Allergies Allergy Unverified 06/08/17 06:55 Home Medications Medication Instructions Recorded Confirmed Last Taken Type Carvedilol [Coreg] 12.5 mg PO BID 06/08/17 09/09/18 2 Days Ago History ~09/07/18 Fenofibrate 160 mg PO DAILY 06/08/17 09/09/18 1 Day Ago History ~09/08/18 Insulin Glargine,Hum.rec.anlog 10 unit SQ QHS #1 vial 06/10/17 09/09/18 1 Day Ago Rx [Lantus] ~09/08/18 Colchicine 0.6 mg PO TID PRN 09/09/18 09/09/18 3 Weeks Ago History ~08/19/18 Active Meds: Active Medications Acetaminophen (Tylenol) 650 mg PO Q4H PRN PRN Reason: Pain MILD(1-3)/Fever >100.5/ALANIZ Aspirin (Aspirin) 325 mg PO QDAY [facility] Last Admin: 09/11/18 09:30 Dose: 325 mg Documented by: Benzonatate (Tessalon Perles) 100 mg PO Q12H [facility] Carvedilol (Coreg) 12.5 mg PO BID [facility] Last Admin: 09/11/18 09:30 Dose: 12.5 mg Documented by: Colchicine (Colchicine) 0.6 mg PO TID PRN PRN Reason: Pain , Severe (7-10) Dextrose (D50w (25gm) Syringe) 50 ml IV PRN PRN PRN Reason: Hypoglycemia Famotidine (Pepcid) 20 mg PO BID [facility] Last Admin: 09/11/18 09:30 Dose: 20 mg Documented by: Fenofibrate (Tricor) 145 mg PO DAILY [facility] Last Admin: 09/11/18 09:30 Dose: 145 mg Documented by: Furosemide (Lasix) 20 mg PO QDAY [facility] Insulin Glargine (Lantus) 10 units SUB-Q QHS [facility] Last Admin: 09/10/18 22:04 Dose: 10 units Documented by: Insulin Human Lispro (Humalog) 0 unit SUB-Q ACHS [facility]; Protocol Last Admin: 09/11/18 09:02 Dose: 2 unit Documented by: Morphine Sulfate (Morphine) 2 mg IV Q4H PRN PRN Reason: Pain, Moderate (4-6) Ondansetron HCl (Zofran) 4 mg IV Q8H PRN PRN Reason: Nausea And Vomiting Last Admin: 09/11/18 08:21 Dose: 4 mg Documented by: Oxycodone/Acetaminophen (Percocet 5/325) 1 tab PO Q6H PRN PRN Reason: Pain, Moderate (4-6) Last Admin: 09/10/18 22:02 Dose: 1 tab Documented by: Sodium Chloride (Sodium Chloride Flush Syringe 10 Ml) 10 ml IV BID [facility] Last Admin: 09/11/18 09:30 Dose: 10 ml Documented by: Sodium Chloride (Sodium Chloride Flush Syringe 10 Ml) 10 ml IV PRN PRN PRN Reason: LINE FLUSH Review of Systems All systems: negative Cardiovascular: orthopnea, shortness of breath, dyspnea on exertion, high blood pressure, decreased exercise tolerance Physical Examination Vital Signs Temp Pulse Resp BP Pulse Ox 97.6 F 96 H 18 111/78 99 09/09/18 16:37 09/09/18 16:37 09/09/18 16:37 09/09/18 16:37 09/09/18 16:37 General appearance: no acute distress, mild distress HEENT: Positive: PERRL, Normocephaly, Mucus Membranes Moist. Negative: Jaundice Neck: Positive: neck supple, trachea midline. Negative: JVD/HJR Cardiac: Positive: Regular Rate, S1/S2, S3, S4, PMI, Laterally Displaced Lungs: Positive: clear to auscultation, No Wheeze, Rales, Rhonchi Neuro: Positive: Grossly Intact Abdomen: Positive: Unremarkable, Soft, Active Bowel Sounds Male genitourinary: Positive: normal Extremities: Present: +1 Edema Results 09/11/18 06:59 09/11/18 06:59 Lipids 09/11/18 Range/Units 06:59 Triglycerides 392 H (2-149) mg/dL Cholesterol 169 (50-199) mg/dL HDL Cholesterol 23 L (40-59) mg/dL Cholesterol/HDL Ratio 7.34 % CBC 09/11/18 Range/Units 06:59 WBC 5.9 (4.5-11.0) K/mm3 RBC 4.33 (3.65-5.03) M/mm3 Hgb 12.7 (11.8-15.2) gm/dl Hct 38.1 (35.5-45.6) % Plt Count 243 (140-440) K/mm3 Comprehensive Metabolic Panel 09/11/18 Range/Units 06:59 Sodium 136 L (137-145) mmol/L Potassium 4.2 (3.6-5.0) mmol/L Chloride 98.2 (98-107) mmol/L Carbon Dioxide 26 (22-30) mmol/L BUN 20 (9-20) mg/dL Creatinine 1.3 (0.8-1.5) mg/dL Glucose 171 H (75-100) mg/dL Calcium 8.9 (8.4-10.2) mg/dL EKG interpretations - Telemetry EKG Rhythm: Sinus Rhythm - EKG Sinus rhythms and dysrhythmias: sinus rhythm Chamber hypertrophy or enlargement: left ventricular hypertro Repolarization changes or abnormalities: nonspecific abnormality, ST segment, and/or T wave Assessment and Plan 1. New onset congestive heart failure 2. Type 2 diabetes mellitus 3. Essential hypertension Plan. Recommend right and left heart cath. Recommend CHF education
--- NOTE | 2018-09-11 14:32 | Progress Note ---
Assessment and Plan Assessment and plan: Patient is a 53 yo man with a history of hypertension, gout, dyslipidemia, IDDM type 2 and tobacco dependency who presented to [facility] with sob. * 2v CXR IMPRESSION: Cardiomegaly. Bilateral effusions airspace disease right greater than left. Findings compatible with congestive heart failure.. Acute systolic heart failure: treated with iv lasix, ECHO pending but prelim shows severe LV dysfunction but Dr. 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 Campa unable to dictate it Ischemic evaluation per Cardiology, ?Cardiac cath, Cardiology input noted, check Renal function in am because BP dropped today and Cr 1.3 today, stopped the lasix History Interval history: Patient was seen and examined. Follow-up on current diagnosis of CHF. No overnight events reported to me. Patient denies any chest pain, shortness breath, nausea/vomiting or severe headaches. Imaging, nursing note, chart, labs and old chart reviewed. Discussed with patient. Hospitalist Physical - Physical exam Narrative exam: Gen: WDWN, NAD, Awake, Alert, Orientated x 3 HEENT: NCAT, EOMI, PERRL, OP Clear Neck: supple, no adenopathy, no thyromegaly, no JVD CVS/Heart: RRR, normal S1S2, pulses present bilaterally Chest/Lungs: CTA B, Symmetrical chest expansion, good air entry bilaterally GI/Abdomen: soft, NTND, good bowel sounds, no guarding or rebound /Bladder: no suprapubic tenderness, no CVA or paraspinal tenderness Extermity/Skin: trace pretibial pitting edema bilateral legs, no obvious rash MSK: FROM x 4 Neuro: CN 2-12 grossly intact, no new focal deficits Psych: calm - Constitutional Vitals: Temp Pulse Resp BP Pulse Ox 98.5 F 87 18 95/64 100 09/11/18 11:44 09/11/18 09:30 09/11/18 12:26 09/11/18 11:44 09/11/18 08:38 General appearance: Present: no acute distress. Absent: mild distress Results - Labs CBC & Chem 7: 09/11/18 06:59 09/11/18 06:59 Labs: Laboratory Last Values WBC 5.9 K/mm3 (4.5-11.0) 09/11/18 06:59 RBC 4.33 M/mm3 (3.65-5.03) 09/11/18 06:59 Hgb 12.7 gm/dl (11.8-15.2) 09/11/18 06:59 Hct 38.1 % (35.5-45.6) 09/11/18 06:59 MCV 88 fl (84-94) 09/11/18 06:59 MCH 29 pg (28-32) 09/11/18 06:59 MCHC 33 % (32-34) 09/11/18 06:59 RDW 16.6 % (13.2-15.2) H 09/11/18 06:59 Plt Count 243 K/mm3 (140-440) 09/11/18 06:59 Lymph % (Auto) 15.3 % (13.4-35.0) 09/10/18 07:26 [place] % (Auto) 4.9 % (0.0-7.3) 09/10/18 07:26 Eos % (Auto) 0.6 % (0.0-4.3) 09/10/18 07:26 Baso % (Auto) 0.3 % (0.0-1.8) 09/10/18 07:26 Lymph # 1.4 K/mm3 (1.2-5.4) 09/10/18 07:26 [place] # 0.4 K/mm3 (0.0-0.8) 09/10/18 07:26 Eos # 0.1 K/mm3 (0.0-0.4) 09/10/18 07:26 Baso # 0.0 K/mm3 (0.0-0.1) 09/10/18 07:26 Seg Neutrophils % 78.9 % (40.0-70.0) H 09/10/18 07:26 Seg Neutrophils # 7.2 K/mm3 (1.8-7.7) 09/10/18 07:26 PT 14.0 Sec. (12.2-14.9) 09/09/18 17:42 INR 1.02 (0.87-1.13) 09/09/18 17:42 APTT 28.1 Sec. (24.2-36.6) 09/09/18 17:42 Sodium 136 mmol/L (137-145) L 09/11/18 06:59 Potassium 4.2 mmol/L (3.6-5.0) 09/11/18 06:59 Chloride 98.2 mmol/L (98-107) 09/11/18 06:59 Carbon Dioxide 26 mmol/L (22-30) 09/11/18 06:59 16 mmol/L 09/11/18 06:59 BUN 20 mg/dL (9-20) 09/11/18 06:59 1.3 mg/dL (0.8-1.5) 09/11/18 06:59 Estimated GFR > 60 ml/min 09/11/18 06:59 15 % 09/11/18 06:59 Glucose 171 mg/dL (75-100) H 09/11/18 06:59 POC Glucose 171 (70-105) H 09/11/18 11:48 7.7 % (4-6) H 09/09/18 21:41 Calcium 8.9 mg/dL (8.4-10.2) 09/11/18 06:59 Magnesium 1.70 mg/dL (1.7-2.3) 09/09/18 17:42 0.90 mg/dL (0.1-1.2) 09/10/18 07:26 AST 22 units/L (5-40) 09/10/18 07:26 ALT 55 units/L (7-56) 09/10/18 07:26 71 units/L (35-129) 09/10/18 07:26 269 units/L (55-170) H 09/09/18 17:42 < 0.010 ng/mL (0.00-0.029) 09/09/18 16:49 NT-Pro-B Natriuret Pep 1093 pg/mL (0-900) H 09/09/18 16:49 6.9 g/dL (6.3-8.2) 09/10/18 07:26 3.9 g/dL (3.9-5) 09/10/18 07:26 1.3 % 09/10/18 07:26 Triglycerides 392 mg/dL (2-149) H 09/11/18 06:59 Cholesterol 169 mg/dL (50-199) 09/11/18 06:59 109 mg/dL (50-130) 09/11/18 06:59 23 mg/dL (40-59) L 09/11/18 06:59 7.34 % 09/11/18 06:59 TSH 1.720 mlU/mL (0.270-4.200) 09/11/18 06:59 Active Medications - Current Medications Current Medications: Generic Name Dose Route Start Last Admin Trade Name Freq PRN Reason Stop Dose Admin Acetaminophen 650 mg 09/09/18 21:26 Tylenol PO Q4H PRN Pain MILD(1-3)/Fever >100.5/ALANIZ Aspirin 325 mg 09/10/18 10:00 09/11/18 09:30 Aspirin PO 325 mg QDAY [facility] Administration Benzonatate 100 mg 09/11/18 10:00 09/11/18 11:45 Tessalon Perles PO 100 mg Q12H REECE Administration Carvedilol 12.5 mg 09/09/18 22:00 09/11/18 09:30 Coreg PO 12.5 mg BID REECE Administration Colchicine 0.6 mg 09/09/18 21:24 Colchicine PO TID PRN Pain , Severe (7-10) Dextrose 50 ml 09/09/18 22:20 D50w (25gm) Syringe IV PRN PRN Hypoglycemia Famotidine 20 mg 09/09/18 22:00 09/11/18 09:30 Pepcid PO 20 mg BID REE[facility] Administration Fenofibrate 145 mg 09/09/18 21:30 09/11/18 09:30 Tricor PO 145 mg DAILY [facility] Administration Furosemide 20 mg 09/11/18 18:00 Lasix PO QDAY R[facility] Insulin Glargine 10 units 09/09/18 22:00 09/10/18 22:04 Lantus SUB-Q 10 units QHS [facility] Administration Insulin Human Lispro 0 unit 09/10/18 07:30 09/11/18 13:19 Humalog SUB-Q 2 unit ACHS [facility] Administration Protocol Morphine Sulfate 2 mg 09/09/18 21:26 Morphine IV Q4H PRN Pain, Moderate (4-6) Ondansetron HCl 4 mg 09/09/18 21:26 09/11/18 08:21 Zofran IV 4 mg Q8H PRN Administration Nausea And Vomiting Oxycodone/Acetaminophen 1 tab 09/09/18 21:26 09/10/18 22:02 Percocet 5/325 PO 1 tab Q6H PRN Administration Pain, Moderate (4-6) Sodium Chloride 10 ml 09/09/18 22:00 09/11/18 09:30 Sodium Chloride Flush Syringe 10 Ml IV 10 ml BID REECE Administration Sodium Chloride 10 ml 09/09/18 21:26 Sodium Chloride Flush Syringe 10 Ml IV PRN PRN LINE FLUSH
[2018-09-11] MEDS: LASIX PO SCH (18:15)
[2018-09-11] MEDS: LANTUS SUB-Q SCH (21:23)
[2018-09-12] MEDS: HumaLOG SUB-Q SCH ×2 (07:59→13:09)
[2018-09-12 08:06] LABS: Bilirubin,Urine NEG (Negative); Blood,Urine NEG (Negative); Color,Urine Straw (Yellow); Mucus,Urine FEW /HPF; Protein,Urine <15 mg/dL mg/dL (Negative); Urobilinogen,Urine < 2.0 mg/dL (<2.0); WBC,Urine < 1.0 /HPF (0.0-6.0)
[2018-09-12] MEDS ORDERED: LEXISCAN IV ONE ×2 (09:09)
--- NOTE | 2018-09-12 11:39 | Progress Note ---
Assessment and Plan Acute heart failure with reduced ejection fraction Non-ischemic cardiomyopathy LVEF 20-25% Coronary artery disease Cath 2017 - small RCA METAL REED TUNER with left to right collaterals, LVEF 25% Shortness of breath MPI this admission - moderate left ventricular enlargement, no ischemia, small fixed inferior wall defect - unchanged from 07/2016 Non-compliance Recommendations: Coreg, lisinopril, aldactone, lasix Outpatient cardiac follow-up in 1 week Fluid and salt restriction May go home cardiac ryan Subjective Date of service: 09/12/18 Principal diagnosis: Acute heart failure Interval history: Patient is doing well. He denies chest pain or shortness of breath No events overnight Objective Vital Signs Temp Pulse Resp BP BP BP Pulse Ox 09/12/18 10:46 18 09/12/18 09:53 123/79 09/12/18 09:50 132/78 09/12/18 09:48 135/82 09/12/18 09:46 138/95 09/12/18 09:45 140/97 09/12/18 09:24 133/88 09/12/18 09:19 136/88 09/12/18 07:23 98.2 F 97 H 18 112/74 96 09/12/18 03:33 98.1 F 91 H 16 102/63 95 09/12/18 02:50 98 09/11/18 23:13 98.3 F 86 16 110/67 96 09/11/18 21:26 88 109/74 09/11/18 19:59 98.2 F 91 H 16 112/74 99 09/11/18 19:27 98.2 F 93 H 16 143/91 96 09/11/18 18:17 88 100/72 09/11/18 16:22 98.1 F 18 90/56 09/11/18 14:39 88 09/11/18 12:26 18 09/11/18 11:44 98.5 F 18 95/64 - Physical Examination HEENT: Positive: PERRL, Normocephaly, Mucus Membranes Moist. Negative: Jaundice Neck: Positive: neck supple, trachea midline. Negative: JVD/HJR Cardiac: Positive: Reg Rate and Rhythm Lungs: Positive: Normal Exam Neuro: Positive: Grossly Intact Abdomen: Positive: Unremarkable, Soft, Active Bowel Sounds Extremities: Present: +1 Edema - Imaging and Cardiology EKG: report reviewed - EKG Sinus rhythms and dysrhythmias: sinus rhythm Chamber hypertrophy or enlargement: left ventricular hypertro Repolarization changes or abnormalities: nonspecific abnormality, ST segment, and/or T wave
--- NOTE | 2018-09-12 11:55 | Discharge Summary ---
Providers - Providers Date of Admission: 09/10/18 11:35 Date of discharge: 09/12/18 Attending physician: FLORIDA BOSTON 09/10/18 11:23 Consult to Physician [CONS] Routine Comment: Consulting Provider: KARSTEN CABRERA Physician Instructions: Reason For Exam: CHF; known patient 09/10/18 11:30 Consult to Physician [CONS] Routine Comment: Consulting Provider: KARSTEN CABRERA Physician Instructions: Reason For Exam: CHF Primary care physician: DRIVER GUARD Hospitalization Reason for admission: chf Condition: Good Hospital course: 53 year old -H[place] male with past medical history significant for hypertension, gout, dyslipidemia, IDDM type 2 and tobacco dependency who presented with shortness of breath orthopnea and dyspnea on mild exertion. The patient was admitted with diagnosis of new acute systolic heart failure and acute hypoxemic respiratory failure. The patient was treated with IV Lasix initially with significant improvement. Patient underwent echocardiogram which revealed severe left ventricular systolic function, EF 20-25%.. Patient was evaluated for ischemic etiology with MPI this admission that revealed moderate left ventricular enlargement, no ischemia and small fiexed inferior wall defect. Cardiology diagnoses patient with nonischemic cardiomyopathy. Final recommendations were for Coreg, lisinopril, Aldactone and Lasix. Patient is to have outpatient cardiac follow-up in 1 week. Continue fluid and salt restriction. Dedicated discharge time 32 minutes. Disposition: TO HOME OR SELFCARE Time spent for discharge: 32 - Discharge Diagnoses (1) Acute CHF Status: Acute Qualifiers: Heart failure type: unspecified Qualified Code(s): I50.9 - Heart failure, unspecified (2) Acute exacerbation of congestive heart failure Status: Acute (3) HTN (hypertension) Status: Chronic Qualifiers: Hypertension type: essential hypertension Qualified Code(s): I10 - Essential (primary) hypertension (4) IDDM (insulin dependent diabetes mellitus) Status: Chronic (5) Acute respiratory failure with hypoxia Status: Acute Core Measure Documentation - Palliative Care Palliative Care/ Comfort Measures: Not Applicable - Core Measures Any of the following diagnoses?: heart failure - Heart Failure Discharge Requirements ANGIE/ARB for LVSD if EF <40%: Yes Beta olesya at discharge: Yes Exam - Constitutional Vitals: Temp Pulse Resp BP Pulse Ox 98.2 F 97 H 18 123/79 96 09/12/18 07:23 09/12/18 07:23 09/12/18 10:46 09/12/18 09:53 09/12/18 07:23 General appearance: Present: no acute distress, well-nourished - EENT Eyes: Present: PERRL ENT: hearing intact, clear oral mucosa - Neck Neck: Present: supple, normal ROM - Respiratory Respiratory effort: normal Respiratory: bilateral: CTA - Cardiovascular Heart Sounds: Present: S1 & S2. Absent: rub, click - Extremities Extremities: pulses symmetrical, No edema Peripheral Pulses: within normal limits - Abdominal General gastrointestinal: Present: soft, non-tender, non-distended, normal bowel sounds Male genitourinary: Present: normal - Integumentary Integumentary: Present: clear, warm, dry - Musculoskeletal Musculoskeletal: gait normal, strength equal bilaterally - Psychiatric Psychiatric: appropriate mood/affect, intact judgment & insight - Neurologic Neurologic: CNII-XII intact, moves all extremities Plan Activity: no restrictions Weight Bearing Status: Full Weight Bearing Diet: low fat, low cholesterol, low salt Special Instructions: restrict fluid intake to (1 liter) Follow up with: PRIMARY CAREMD [Primary Care Provider] - 7 Days CARLOTA MOREIRA MD [Staff Physician] - 7 Days Prescriptions: Spironolactone [Aldactone] 25 mg PO QDAY #30 tablet Aspirin 325 mg PO QDAY #30 tablet Colchicine 0.6 mg PO TID PRN #90 capsule PRN Reason: Pain , Severe (7-10) Carvedilol [Coreg] 12.5 mg PO BID #60 tablet Fenofibrate 160 mg PO DAILY #30 tablet Furosemide [Lasix TAB] 20 mg PO QDAY #30 tablet Famotidine [Pepcid] 20 mg PO BID #60 tablet oxyCODONE /ACETAMINOPHEN [Percocet 5/325 mg] 1 tab PO Q6H PRN #8 tablet PRN Reason: Pain, Moderate (4-6) Lisinopril [Zestril TAB] 5 mg PO QDAY #30 tablet
[2018-09-12] MEDS: COREG PO SCH (12:12)
[2018-09-12] MEDS: TRICOR PO SCH (12:12)
[2018-09-12] MEDS: ASPIRIN PO SCH (12:12)
[2018-09-12] MEDS: PEPCID PO SCH (12:12)
[2018-09-12] MEDS: LASIX PO SCH (12:13)
[2018-09-12] MEDS: SODIUM CHLORIDE FLUSH SYRINGE 10 ML IV SCH (12:13)
[2018-09-12] MEDS: TESSALON PERLES PO SCH (12:18)
[2018-09-12 15:07] VITALS: BP 121/76
--- NOTE | 2018-09-13 02:47 | Treadmill Report ---
INDICATION: Chest pain. ORDERING PHYSICIAN: Sonal Rosario MD FINDINGS: The left ventricular cavity is moderately dilated. There is evidence of a small, fixed inferior wall defect of mild intensity. There is no scintigraphic evidence of myocardial ischemia. There is severe global left ventricular hypokinesis with an ejection fraction measured at 18%. Findings are unchanged compared to the study dated 07/2016. CONCLUSION: 1. No scintigraphic evidence of myocardial ischemia. 2. Small, fixed inferior wall defect of mild intensity, unchanged from the study dated back to 07/2016. 3. Moderately dilated left ventricle with an ejection fraction measured at 18% and severe global hypokinesis. JOB# [id number] EHSAN/STEPHEN
[2018-09-13] MEDS ORDERED: ALDACTONE PO SCH (10:00)
[2018-09-13] MEDS ORDERED: ZESTRIL PO SCH (10:00)
== END 2018-09-12 15:10 | disposition home or self-care (01) | DRG 291 ==
LOC: ED 16:29 → 4A 18:11 → OBSVTOIN 09-10 11:35
PROVIDERS: ADMIT Internal Medicine; ATTEND Hospitalist
DX: I11.0 Hypertensive heart disease with heart failure (principal); J96.01 Acute respiratory failure with hypoxia; M10.9 Gout, unspecified; E78.5 Hyperlipidemia, unspecified; I42.9 Cardiomyopathy, unspecified; I25.10 Atherosclerotic heart disease of native coronary artery without angina pectoris; F10.10 Alcohol abuse, uncomplicated; Y90.9 Presence of alcohol in blood, level not specified; I50.23 Acute on chronic systolic (congestive) heart failure; E11.9 Type 2 diabetes mellitus without complications; F17.200 Nicotine dependence, unspecified, uncomplicated; Z79.84 Long term (current) use of oral hypoglycemic drugs; Z71.6 Tobacco abuse counseling; Z79.899 Other long term (current) drug therapy
CPT/HCPCS: 36415; 71046; 78452; 80048; 80053; 80061; 81001; 82550; 82962; 83036; 83735; 83880; 84443; 84484; 85025; 85027; 85610; 85730; 87116; 93005; 93010; 93017; 93306; 94760; 96374; G0378; A9502; J1650; J1815; J1940; J2405; J2785